=== PATIENT | male | born 1970 ===

== ENCOUNTER 2024-11-03 07:45 | Day surgery (SDC) | payer BC ==
[~2024-11-03 07:45] MED LIST: Metoclopramide 10 MG/2 ML SDV IV PRN
[2024-11-03] MEDS: Sodium Chloride 0.9% 1,000 ML IV SCH (08:09)
[2024-11-03] MEDS ORDERED: Propofol 200 MG/20 ML SDV ONE (09:00)
== END 2024-11-03 10:10 | disposition home or self-care (01) ==
LOC: LB.SDS 07:45
PROVIDERS: ATTEND Surgery
DX: Z12.11 Encounter for screening for malignant neoplasm of colon (principal); D12.0 Benign neoplasm of cecum; D12.3 Benign neoplasm of transverse colon; D12.5 Benign neoplasm of sigmoid colon; K57.30 Diverticulosis of large intestine without perforation or abscess without bleeding; E87.1 Hypo-osmolality and hyponatremia; Z86.0100 Personal history of colon polyps, unspecified; Z80.0 Family history of malignant neoplasm of digestive organs
CPT/HCPCS: 45385; 88305; 88341; 88342; J2704; J7030